=== PATIENT | male | born 1990 | race Caucasian/White ===

== ENCOUNTER 2017-11-27 08:33 | Emergency (ER) | payer OTHER ==
--- NOTE | 2017-11-27 10:39 | UC ---
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 Yesterday night he noticed acute pain and swelling of right knee below knee cap. Took ibuprofen and used a knee brace ever since and has noticed swelling has decreased somewhat but still there. He states there is no baseline pain at knee and only when kneeling or applying pressure he does feel the pain. Denies fever or radiation of pain to any other area - History of Current Complaint Chief Complaint: UCLowerExtremity Stated Complaint: KNEE PAIN Time Seen by Provider: 11/27/17 09:43 Hx Obtained From: Patient Onset/Duration: Sudden Onset, Lasting Hours Severity Initially: Moderate Severity Currently: Mild Pain Intensity: 3 Pain Scale Used: 0-10 Numeric Character: Dull Aggravating Factor(s): Weight Bearing Alleviating Factor(s): Rest Associated Signs And Symptoms: Positive: Swelling, Redness Able to Bear Weight: Yes - Risk Factors Septic Arthritis Risk Factor: Negative Gout Risk Factor: Negative - Allergies/Home Medications Allergies/Adverse Reactions: Allergies Allergy/AdvReac Type Severity Reaction Status Date / Time No Known Allergies Allergy Verified 11/27/17 08:46 PMH/Surg Hx/FS Hx/Imm Hx Previously Healthy: Yes - Surgical History Surgical History: None - Family History Known Family History: Negative: Hypertension, Diabetes, Blood Disorder - Social History Alcohol Use: None Substance Use Type: None Smoking Status (MU): Never Smoked Tobacco - Immunization History Most Recent Tetanus Shot: 04/23/2016 Review of Systems Musculoskeletal: Arthralgia All Other Systems Reviewed And Are Negative: Yes Physical Exam Triage Information Reviewed: Yes Appearance: Well-Appearing Vital Signs: Initial Vital Signs Temp 98.8 F 11/27/17 08:46 Pulse 64 11/27/17 08:46 Resp 16 11/27/17 08:46 BP 105/57 11/27/17 08:46 Pulse Ox 100 11/27/17 08:46 Vital Signs Reviewed: Yes Eyes: Positive: Conjunctiva Clear ENT: Positive: Pharynx normal Neck: Positive: Supple, Nontender Respiratory: Positive: Chest non-tender, Lungs clear, Normal breath sounds, No respiratory distress Cardiovascular: Positive: RRR, No Murmur, Pulses Normal, Brisk Capillary Refill Musculoskeletal: Positive: Strength Intact, ROM Intact, No Edema, Other: - erythema and swelling of inferior patellar bursa. Patella is mobile, no effusion noted. Varus/valgus negative, ADT/PDT negative. Knee Pain Course/Dx - Course Course Of Treatment: Continue NSAIDS for 48 hrs to decrease inflamation, RICE. Monitoring, referral PCP for f/u - Differential Dx/Diagnosis Provider Diagnoses: right knee bursitis Discharge - Sign-Out/Discharge Documenting (check all that apply): Discharge - Discharge Plan Condition: Stable Disposition: HOME Patient Education Materials: Knee Bursitis (ED) Referrals: No Primary Care Phys,NOPCP [Primary Care Provider] - [facility] [place]] - Billing Disposition and Condition Condition: STABLE Disposition: HOME
== END 2017-11-27 10:04 | disposition home or self-care (01) ==
LOC: UCEAST 08:33
DX: M70.51 Other bursitis of knee, right knee (principal); Y93.89 Activity, other specified
CPT/HCPCS: 99211; G0463